=== PATIENT | female | born 1990 | race American Indian/Alaskan Native ===

== ENCOUNTER 2018-11-09 15:17 | Emergency (ER) | payer SELFPAY ==
--- NOTE | 2018-11-09 15:25 | Event Note ---
ED Screening Note Date of service: 11/09/18 Time: 15:22 ED Screening Note: This is a 27 y.o. F. that presents to the ER with abdominal cramps and lightheadedness. Patient reports menstrual period started yesterday with severe cramping. She took Goody powder and felt lightheaded after. Denies syncopal episode This initial assessment/diagnostic orders/clinical plan/treatment(s) is/are subject to change based on patients health status, clinical progression and re- assessment by fellow clinical providers in the ED. Further treatment and workup at subsequent clinical providers discretion. Patient/guardian urged not to elope from the ED as their condition may be serious if not clinically assessed and managed. Initial orders include: Labs
[2018-11-09 15:44] LABS: Basophils % (Auto) 0.2 % (0.0-1.8); Eosinophils # (Auto) 0.1 K/mm3 (0.0-0.4); Eosinophils % (Auto) 1.2 % (0.0-4.3); Hematocrit 36.9 % (30.3-42.9); Hemoglobin 12.4 gm/dl (10.1-14.3); Lymphocytes # (Auto) 1.6 K/mm3 (1.2-5.4); Lymphocytes % (Auto) 28.1 % (13.4-35.0); Mean Corpuscular HGB Conc 34 % (30-34); Mean Corpuscular Volume 90 fl (79-97); Monocytes # (Auto) 0.4 K/mm3 (0.0-0.8); Monocytes % (Auto) 7.3 % (0.0-7.3); Platelet Count 221 K/mm3 (140-440); Red Cell Distribution Width 14.2 % (13.2-15.2)
[2018-11-09 16:07] LABS: Alanine Aminotransferase 14 units/L (7-56); Albumin 4.3 g/dL (3.9-5); BUN/Creatinine Ratio 12; Blood Urea Nitrogen 7 mg/dL (7-17); Calcium 9.3 mg/dL (8.4-10.2); Hemolysis Index 5
[2018-11-09 16:07] LABS: Bilirubin,Urine NEG (Negative); Blood,Urine LG (Negative); Color,Urine Straw (Yellow); Mucus,Urine FEW /HPF; Protein,Urine <15 mg/dL mg/dL (Negative); Urobilinogen,Urine < 2.0 mg/dL (<2.0); WBC,Urine < 1.0 /HPF (0.0-6.0)
[2018-11-09] MEDS ORDERED: NACL 0.9% 1000 ML 1,000 ML IV ONE ×2 (20:08→21:20)
[2018-11-09] MEDS ORDERED: ZOFRAN IV ONE (20:08)
[2018-11-09] MEDS ORDERED: TORADOL IV ONE ×2 (20:08→20:40)
[2018-11-09] MEDS ORDERED: TYLENOL PO ONE (20:29)
--- NOTE | 2018-11-09 20:37 | Emergency Department Report ---
ED Abdominal Pain HPI - General Chief Complaint: Abdominal Pain Stated Complaint: STOMACH PAIN/LIGHTHEADED Time Seen by Provider: 11/09/18 15:22 Source: patient Mode of arrival: Ambulatory Limitations: No Limitations - History of Present Illness Initial Comments: This is a 27 y.o. F. that presents to the ER with abdominal cramps and lightheadedness. Patient reports menstrual period started yesterday with severe cramping. She took Goody powder and felt lightheaded after. Denies syncopal episode MD Complaint: abdominal pain Onset/Timin -: days(s) Location: LLQ, RLQ Radiation: LLQ, RLQ Migration to: LLQ, RLQ Severity: moderate Severity scale (0 -10): 5 Quality: cramping, aching Consistency: constant Improves With: nothing Worsens With: nothing Associated Symptoms: nausea - Related Data LMP Date: 11/07/18 Previous Rx's Medication Instructions Recorded Last Taken Type Ibuprofen [Motrin 800 MG tab] 800 mg PO Q8HR PRN #30 tablet 11/09/18 Unknown Rx Allergies Allergy/AdvReac Type Severity Reaction Status Date / Time No Known Allergies Allergy Unverified 11/09/18 15:19 ED Review of Systems ROS: Stated complaint: STOMACH PAIN/LIGHTHEADED Other details as noted in HPI Constitutional: denies: chills, fever Eyes: denies: eye pain, eye discharge, vision change ENT: denies: ear pain, throat pain Respiratory: denies: cough, shortness of breath, wheezing Cardiovascular: denies: chest pain, palpitations Endocrine: no symptoms reported Gastrointestinal: abdominal pain. denies: nausea, vomiting, diarrhea, constipation, hematemesis, melena, hematochezia Genitourinary: denies: urgency, dysuria, frequency, hematuria, discharge, abnormal menses, dyspareunia Musculoskeletal: denies: back pain, joint swelling, arthralgia Skin: denies: rash, lesions Neurological: denies: headache, weakness, numbness, paresthesias, confusion, vertigo Psychiatric: denies: anxiety, depression Hematological/Lymphatic: denies: easy bleeding, easy bruising ED Past Medical Hx - Past Medical History Previous Medical History?: No - Surgical History Past Surgical History?: No - Social History Smoking Status: Never Smoker Substance Use Type: None - Medications Home Medications: Home Medications Medication Instructions Recorded Confirmed Last Taken Type Ibuprofen [Motrin 800 MG tab] 800 mg PO Q8HR PRN #30 tablet 11/09/18 Unknown Rx ED Physical Exam - General Limitations: No Limitations General appearance: alert, in no apparent distress - Head Head exam: Present: atraumatic, normocephalic - Eye Eye exam: Present: normal appearance, PERRL, EOMI Pupils: Present: normal accommodation - ENT ENT exam: Present: mucous membranes moist - Neck Neck exam: Present: normal inspection, full ROM. Absent: tenderness, lymphadenopathy - Respiratory Respiratory exam: Present: normal lung sounds bilaterally. Absent: respiratory distress, wheezes, stridor, chest wall tenderness - Cardiovascular Cardiovascular Exam: Present: regular rate, normal rhythm, normal heart sounds. Absent: systolic murmur, diastolic murmur, rubs, gallop - GI/Abdominal GI/Abdominal exam: Present: soft, tenderness (bialt lower abd to deep palpati on), normal bowel sounds. Absent: distended, guarding, rebound, rigid, bruit, hernia - Rectal Rectal exam: Present: deferred - External exam: Present: other (exam deferred per patient ) - Extremities Exam Extremities exam: Present: normal inspection, full ROM, normal capillary refill (.). Absent: tenderness - Back Exam Back exam: Present: normal inspection, full ROM. Absent: tenderness, CVA tenderness (R), CVA tenderness (L), muscle spasm, rash noted - Neurological Exam Neurological exam: Present: alert, oriented X3, CN II-XII intact, normal gait - Expanded Neurological Exam Expanded Patient oriented to: Present: person, place, time Speech: Present: fluid speech Cranial nerves: EOM's Intact: Normal, Gag Reflex: Normal, Tongue Deviation: Normal, Nystagmus: Normal, Facial Sensation: Normal Cerebellar function: Finger to Nose: Normal, Heel to Odw: Normal, Romberg: Normal Upper motor neuron: Omar Neglect: Normal, Pronator Drift: Normal, Sensory Extinction: Normal Motor strength exam: RUE: 5, LUE: 5, RLE: 5 (is), LLE: 5 Best Eye Response (Amanda): (4) open spontaneously Best Motor Response (Amanda): (6) obeys commands Best Verbal Response (Amanda): (5) oriented [place] Total: 15 - Psychiatric Psychiatric exam: Present: normal affect, normal mood - Skin Skin exam: Present: warm, dry, intact, normal color. Absent: rash ED Course Vital Signs 11/09/18 15:22 Temperature 98.4 F Pulse Rate 69 Respiratory 18 Rate Blood Pressure 131/84 [Left] O2 Sat by Pulse 100 Oximetry ED Medical Decision Making - Lab Data Result diagrams: 11/09/18 15:32 11/09/18 15:32 Labs 11/09/18 11/09/18 11/09/18 15:32 15:32 17:44 WBC 5.9 RBC 4.10 Hgb 12.4 Hct 36.9 MCV 90 MCH 30 MCHC 34 RDW 14.2 Plt Count 221 Lymph % (Auto) 28.1 [place]dwell % (Auto) 7.3 Eos % (Auto) 1.2 Baso % (Auto) 0.2 Lymph # 1.6 Caldwell # 0.4 Eos # 0.1 Baso # 0.0 Seg Neutrophils % 63.2 Seg Neutrophils # 3.7 Sodium 138 Potassium 3.8 Chloride 103.6 Carbon Dioxide 20 L Anion Gap 18 BUN 7 Creatinine 0.6 L Estimated GFR > 60 BUN/Creatinine Ratio 12 Glucose 86 Calcium 9.3 Total Bilirubin 0.30 AST 25 ALT 14 Alkaline Phosphatase 39 Total Protein 7.8 Albumin 4.3 Albumin/Globulin Ratio 1.2 HCG, Quant < 2 Urine Color Urine Turbidity Urine pH Ur Specific Venus Urine Protein Urine Glucose (UA) Urine Ketones Urine Blood Urine Nitrite Urine Bilirubin Urine Urobilinogen Ur Leukocyte Esterase Urine WBC (Auto) Urine RBC (Auto) U Epithel Cells (Auto) Urine Mucus 11/09/18 Unknown WBC RBC Hgb Hct MCV MCH MCHC RDW Plt Count Lymph % (Auto) Caldwell % (Auto) Eos % (Auto) Baso % (Auto) Lymph # Caldwell # Eos # Baso # Seg Neutrophils % Seg Neutrophils # Sodium Potassium Chloride Carbon Dioxide Anion Gap BUN Creatinine Estimated GFR BUN/Creatinine Ratio Glucose Calcium Total Bilirubin AST ALT Alkaline Phosphatase Total Protein Albumin Albumin/Globulin Ratio HCG, Quant Urine Color Straw Urine Turbidity Clear Urine pH 6.0 Ur Specific Venus 1.005 Urine Protein <15 mg/dl Urine Glucose (UA) Neg Urine Ketones Neg Urine Blood Lg Urine Nitrite Neg Urine Bilirubin Neg Urine Urobilinogen < 2.0 Ur Leukocyte Esterase Neg Urine WBC (Auto) < 1.0 Urine RBC (Auto) 2.0 U Epithel Cells (Auto) 2.0 Urine Mucus Few - Radiology Data Radiology results: report reviewed, image reviewed Ordering Physician: LENI BEACH NP Date of Service: 11/09/18 Procedure(s): CT abdomen pelvis wo con Accession Number(s): [id number] cc: LENI BEACH NP CT ABDOMEN AND PELVIS WITHOUT CONTRAST HISTORY: flank pain. COMPARISON: None. TECHNIQUE: CT images of the abdomen and pelvis were obtained without administration of intravenous contrast. All CT scans at this location are performed using CT dose reduction for ALARA by means of automated exposure control. FINDINGS: Lungs/bones: Lung bases are clear. There is no acute osseous abnormality or significant degenerative change. Abdomen/pelvis: The liver, gallbladder, spleen, pancreas, adrenals, kidneys, and proximal GI tract appear unremarkable. The urinary bladder and reproductive organs are unremarkable with no pelvic free fluid. There is no acute colonic abnormality. The appendix and terminal ileum are normal. IMPRESSION: 1. No acute abnormality on this limited noncontrast examination. Signer Name: Lucio Monreal MD Signed: 11/09/2018 9:14 PM Workstation Name: [id number] Transcribed By: CHIO Dictated By: Lucio Monreal MD Electronically Authenticated By: Lucio Monreal MD Signed Date/Time: 11/09/182113 DD/ 11 TD/TT: - Medical Decision Making CT Abd and pelvis normal no not abnormalities, ua normal, cbc and cmp are normal, ENT exam normal, neuro exam is normal there is mild reproducible bilat lower abd pain to deep palpation pt denies clines vaginal exam, there is no dizziness no lightheadedness no n/v no syncope plan, dc to home with rx for ibuprofen, follow up with [employer] for DX Dymenorrhea , pt verbalizes agreement and understanding of discharge plan pt for dc to home in stable condition at this time. Critical care attestation.: If time is entered above; I have spent that time in minutes in the direct care of this critically ill patient, excluding procedure time. ED Disposition Clinical Impression: Dysmenorrhea Abdominal pain Qualifiers: Abdominal location: lower abdomen, unspecified Qualified Code(s): R10.30 - Lower abdominal pain, unspecified Disposition: DC-01 TO HOME OR SELFCARE Is pt being admited?: No Does the pt Need Aspirin: No Condition: Stable Instructions: Dysmenorrhea (ED), Abdominal Pain (ED) Prescriptions: Ibuprofen [Motrin 800 MG tab] 800 mg PO Q8HR PRN #30 tablet PRN Reason: pain Referrals: RADHA BRIONES MD [Staff Physician] - 3-5 Days PRIMARY CARE, [Primary Care Provider] - 3-5 Days Forms: Work/School Release Form(ED) Time of Disposition: 22:13
--- NOTE | 2018-11-09 21:19 | Cat Scan Report ---
CT ABDOMEN AND PELVIS WITHOUT CONTRAST HISTORY: flank pain. COMPARISON: None. TECHNIQUE: CT images of the abdomen and pelvis were obtained without administration of intravenous co ntrast. All CT scans at this location are performed using CT dose reduction for ALARA by means of au tomated exposure control. FINDINGS: Lungs/bones: Lung bases are clear. There is no acute osseous abnormality or significant degenerative change. Abdomen/pelvis: The liver, gallbladder, spleen, pancreas, adrenals, kidneys, and proximal GI tract a ppear unremarkable. The urinary bladder and reproductive organs are unremarkable with no pelvic free fluid. There is no a cute colonic abnormality. The appendix and terminal ileum are normal. IMPRESSION: 1. No acute abnormality on this limited noncontrast examination. Signer Name: Lucio Monreal MD Signed: 11/09/2018 9:14 PM Workstation Name: [id number]
[2018-11-09 23:22] VITALS: BP 133/88
== END 2018-11-09 23:23 | disposition home or self-care (01) ==
LOC: ED 15:17
DX: N94.6 Dysmenorrhea, unspecified (principal); R42 Dizziness and giddiness
CPT/HCPCS: 36415; 74176; 80053; 81001; 84702; 85025; J1885; J2405; J7030; 96361; 96374

== ENCOUNTER 2018-11-24 11:09 | Emergency (ER) | payer SELFPAY ==
[2018-11-24 11:34] VITALS: BP 158/97
--- NOTE | 2018-11-24 11:40 | Event Note ---
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 she was told by her job to have a follow up for limited duties This initial assessment/diagnostic orders/clinical plan/treatment(s) is/are subject to change based on patients health status, clinical progression and re-assessment by fellow clinical providers in the ED. Further treatment and workup at subsequent clinical providers discretion. Patient/guardian urged not to elope from the ED as their condition may be serious if not clinically assessed and managed. Initial orders include: kylee work note after shayna
--- NOTE | 2018-11-24 13:33 | Emergency Department Report ---
Chief Complaint: Dyspnea/Respdistress Stated Complaint: WEAKNESS/SOB/TINGLING HANDS Time Seen by Provider: 11/24/18 11:34 - HPI History of Present Illness: She is a 27-year-old Female who is here for weakness. Patient states that for the past 2-3 weeks she gets some mild shortness of breath with exertion. Patient denies any chest pain cough cold congestion fevers or chills. The patient just states that with her job she just feels very tired and fatigued. Occasionally she'll have some tingling of her hands. Patient states that she has heavy periods. Patient was here on November 09 for same complaint and was diagnosed with mild dehydration. After studies at that time were within normal limits. There are no electrolyte abnormalities and the patient was not anemic. Today for work note to have light duty - ROS Review of Systems: All other systems are reviewed and are negative - Exam Vital Signs: Vital Signs 11/24/18 11:32 Temperature 98 F Pulse Rate 76 Respiratory 18 Rate Blood Pressure 158/97 O2 Sat by Pulse 100 Oximetry Physical Exam: Patient is alert and oriented 3 in no acute distress. Abdomen soft nontender lungs are clear to auscultation heart tones are within normal limits as well. MSE screening note: Focused history and physical exam performed. Due to findings the following was ordered: ED Medical Decision Making - Medical Decision Making Patient is not medical emergency at this time. Laboratory studies on her last visit did not confirm any significant correctable abnormalities. Patient has not had any change in her condition since her last visit. Patient will be given a work note but will be given follow-up for primary care follow-up. ED Disposition for MSE Clinical Impression: Chronic fatigue Disposition: MED SCREENING EXAM-LEFT Is pt being admited?: No Does the pt Need Aspirin: No Condition: Stable Referrals: AMRIK GUAJARDO MD [Referring] - 3-5 Days ASHLEY JACKSON MD [Staff Physician] - 3-5 Days Forms: Work/School Release Form(ED) Time of Disposition: 13:32
== END 2018-11-24 13:47 | disposition left against medical advice (07) ==
LOC: ED 11:09
DX: R53.82 Chronic fatigue, unspecified (principal)

== ENCOUNTER 2018-11-29 11:16 | Emergency (ER) | payer SELFPAY ==
[2018-11-29 11:41] VITALS: BP 140/82
--- NOTE | 2018-11-29 11:42 | Emergency Department Report ---
Stated Complaint: MEDICAL CLEARANCE Time Seen by Provider: 11/29/18 11:37 - HPI History of Present Illness: 27-year-old female that presents to the ED for work excuse. Denies any symptoms. Denies any chest pain, shortness of breathe, headache, nausea, vomiting, back pain, or any other symptoms. Denies any allergies. - Exam Physical Exam: No abdominal pain. No back pain. No symtoms. MSE screening note: Focused history and physical exam performed. Due to findings the following was ordered: ED Medical Decision Making - Medical Decision Making This is a 27-year-old female that presents with nonmedical emergency complaint. Patient denies any symptoms. This is a nonmedical emergency. I gave patient many different referrals to follow-up. Patient was instructed to Follow-up with a primary care doctor in 3-5 days or if symptoms worsen and continue return to emergency room as soon as possible. At time of discharge, the patient does not seem toxic or ill in appearance. No acute signs of distress noted. Patient agrees to discharge treatment plan of care. No further questions noted by the patient. ED Disposition for MSE Clinical Impression: Encounter to obtain excuse from work Disposition: Z-07 MED SCREENING EXAM-LEFT Is pt being admited?: No Does the pt Need Aspirin: No Condition: Stable Additional Instructions: Follow-up with referrals that you have been received or if symptoms worsen and continue return to emergency room as soon as possible. Referrals: PRIMARY MD STEPHANIE [Referring] - 3-5 Days SCOTT YBARRA MD [Staff Physician] - 3-5 Days [facility] [Outside] - 3-5 Days [facility] [Outside] - 3-5 Days Time of Disposition: 11:42
== END 2018-11-29 12:00 | disposition left against medical advice (07) ==
LOC: ED 11:16
DX: Z00.00 Encounter for general adult medical examination without abnormal findings (principal)

== ENCOUNTER 2018-12-09 10:05 | Emergency (ER) | payer OTHER ==
[2018-12-09 10:19] VITALS: BP 137/93
--- NOTE | 2018-12-09 11:45 | Emergency Department Report ---
ED Upper Extremity Inj HPI - General Chief Complaint: Shoulder Injury Stated Complaint: CHEST PAIN/LFT ARM PAIN Time Seen by Provider: 12/09/18 10:40 Source: patient Mode of arrival: Ambulatory Limitations: No Limitations - History of Present Illness Initial Comments: Sustained 27-year-old -[place] female who presents to the emergency room with left sided chest discomfort with elevation of left arm. 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 Patient states every time she lifted her left arm the left side of her chest under left breast have a pulling sensation. She reports pain as 5 out of 10 on pain scale and intermittent. She denies radiating pain, numbness or tingling, weakness, palpitations, shortness of breath. Complaint: Injury to:: left Onset/Timin -: days(s) Other Extremity Injury: Arm: Left Other Injuries: none Handedness: right Place: work Severity scale (0 -10): 5 Improves With: none Worsens With: movement of extremity Associated Symptoms: denies other symptoms - Related Data Previous Rx's Medication Instructions Recorded Last Taken Type Ibuprofen [Motrin 800 MG tab] 800 mg PO Q8HR PRN #30 tablet 12/09/18 Unknown Rx Methocarbamol [Robaxin] 500 mg PO BID PRN #15 tablet 12/09/18 Unknown Rx Allergies Allergy/AdvReac Type Severity Reaction Status Date / Time No Known Allergies Allergy Unverified 11/09/18 15:19 ED Review of Systems ROS: Stated complaint: CHEST PAIN/LFT ARM PAIN Other details as noted in HPI Constitutional: denies: chills, fever Respiratory: denies: cough, shortness of breath, wheezing Cardiovascular: chest pain (left side chest discomfort). denies: palpitations Gastrointestinal: denies: abdominal pain, nausea, diarrhea Musculoskeletal: arthralgia (left arm pain). denies: back pain, joint swelling Skin: denies: rash, lesions Neurological: denies: headache, weakness, paresthesias ED Past Medical Hx - Past Medical History Previous Medical History?: No - Surgical History Past Surgical History?: No - Social History Smoking Status: Never Smoker Substance Use Type: None - Medications Home Medications: Home Medications Medication Instructions Recorded Confirmed Last Taken Type Ibuprofen [Motrin 800 MG tab] 800 mg PO Q8HR PRN #30 tablet 12/09/18 Unknown Rx Methocarbamol [Robaxin] 500 mg PO BID PRN #15 tablet 12/09/18 Unknown Rx ED Physical Exam - General Limitations: No Limitations General appearance: alert, in no apparent distress - Respiratory Respiratory exam: Present: normal lung sounds bilaterally, chest wall tenderness (left costochondral margin, negative swelling). Absent: respiratory distress, wheezes, rales, rhonchi, stridor - Cardiovascular Cardiovascular Exam: Present: regular rate, normal rhythm. Absent: systolic murmur, diastolic murmur, rubs, gallop - GI/Abdominal GI/Abdominal exam: Present: soft, normal bowel sounds - Expanded Upper Extremity Exam Left Shoulder Exam: Present: normal inspection, full ROM Upper Arm exam: Present: normal inspection, full ROM Elbow exam: Present: normal inspection, full ROM Forearm Wrist exam: Present: normal inspection, full ROM Hand Wrist exam: Present: normal inspection, full ROM Neuro motor exam: Present: wrist extension intact, thumb opposition intact, thumb IP flexion intact, thumb adduction intact, fingers 2-5 abduction intact Neurosensory exam: Present: radial nerve intact, ulnar nerve intact, median nerve intact Vascular: Present: normal capillary refill, radial pulse - Neurological Exam Neurological exam: Present: alert, oriented X3 - Psychiatric Psychiatric exam: Present: normal affect, normal mood - Skin Skin exam: Present: warm, dry, intact, normal color. Absent: rash ED Course Vital Signs 12/09/18 10:17 Temperature 98.2 F Pulse Rate 67 Respiratory 16 Rate Blood Pressure 137/93 [Left] O2 Sat by Pulse 100 Oximetry ED Medical Decision Making - Radiology Data Radiology results: report reviewed CHEST 2 VIEWS INDICATION: chest pain. COMPARISON: None FINDINGS: Support devices: None. Heart: Within normal limits. Lungs/pleura: No acute air space or interstitial disease. No pneumothorax. Additional findings: None. IMPRESSION: No acute findings. - Medical Decision Making 27 y.o. female that presents with chest pain on left side with movement of LUE x 2 days. Denies drug use, asthma, SOB, palpations, fever, or dyspnea. Patient examined by me and in no acute distress. Given ibuprofen once in ER. Vitals stable. Obtained chest xray with no acute findings. Physical assessment findings of tenderness along left costochondral margin. Start ibuprofen and flexeril. Discharged home stable. Return to work tomorrow. - Differential Diagnosis chest pain, angina, muscle strain Critical care attestation.: If time is entered above; I have spent that time in minutes in the direct care of this critically ill patient, excluding procedure time. ED Disposition Clinical Impression: Acute costochondritis, Chest pain, musculoskeletal Disposition: TO HOME OR SELFCARE Is pt being admited?: No Does the pt Need Aspirin: No Condition: Stable Instructions: Costochondritis (ED) Additional Instructions: Take ibuprofen and robaxin as needed for pain control. Don't take robaxin while driving or operating heavy machinery, may cause drowsiness. Follow up with primary care provider in 24-72 hours. Return to ER if chest pain unresolved, shortness of breath, or difficulty breathing. Prescriptions: Ibuprofen [Motrin 800 MG tab] 800 mg PO Q8HR PRN #30 tablet PRN Reason: pain Methocarbamol [Robaxin] 500 mg PO BID PRN #15 tablet PRN Reason: Muscle Spasm Referrals: [facility] [Outside] - 3-5 Days [facility] [Outside] - 3-5 Days [facility] [Outside] - 3-5 Days Forms: Work/School Release Form(ED) Time of Disposition: 12:54
[2018-12-09] MEDS ORDERED: IBUPROFEN PO ONE (11:46)
--- NOTE | 2018-12-09 12:49 | XRay Report ---
CHEST 2 VIEWS INDICATION: chest pain. COMPARISON: None FINDINGS: Support devices: None. Heart: Within normal limits. Lungs/pleura: No acute air space or interstitial disease. No pneumothorax. Additional findings: None. IMPRESSION: No acute findings. Signer Name: Samson Aguilera Jr, MD Signed: 12/09/2018 12:45 PM Workstation Name: [id number]
== END 2018-12-09 13:04 | disposition home or self-care (01) ==
LOC: ED 10:05
DX: M94.0 Chondrocostal junction syndrome [Tietze] (principal); M79.10 Myalgia, unspecified site; Z79.899 Other long term (current) drug therapy
CPT/HCPCS: 71046; 99283